=== PATIENT | female | born 1990 | race Caucasian/White ===

== ENCOUNTER → 2018-10-11 | Outpatient (CLI) | payer OTHER ==
[~2018-10-11] MED LIST: Bactrim Ds Tab1 EACH PO; CEPH500 PO; Cleocin HCl300 MG PO; HYDACE5; HYDACE5 PO; IBUP800; NAPR500 PO; Norco 5-325 Ta1 EACH PO; OXYACE5T PO; OXYC5 PO; RXOXYACE PO; Veetids 500500 MG PO
== END ==
LOC: LAB 11:30 → LAB SHORT 11:30
PROVIDERS: Family Medicine
DX: Z09 Encounter for follow-up examination after completed treatment for conditions other than malignant neoplasm (principal); Z87.42 Personal history of other diseases of the female genital tract
CPT/HCPCS: 87624; 87625; 88142

== ENCOUNTER → 2018-11-12 | Outpatient (CLI) | payer OTHER | LOC: PLD 11:59 → LAB SHORT 11:59 | DX: Z12.4 Encounter for screening for malignant neoplasm of cervix (principal); R87.612 Low grade squamous intraepithelial lesion on cytologic smear of cervix (LGSIL) | CPT/HCPCS: 88305 ==

== ENCOUNTER 2018-12-28 13:17 | Day surgery (SDC) | payer OTHER ==
[~2018-12-28] VITALS: Ht 162.6 cm; Wt 90.8 kg
[~2018-12-28 13:17] MED LIST changes: +ALBU90OI INH; +GABA100 PO
[2018-12-28] MEDS ORDERED: ESCI5 PO (14:05)
[2018-12-28] MEDS ORDERED: BUSP5 PO (14:05)
--- NOTE | 2018-12-28 14:17 | NUR ---
12/28/18 1417 Trupti Kim V PT RESTING IN BEDM SIDE RAILS IN PLACE, CALL LIGHT WITHIN REACH, VSS. PT TEACHING COMPLETED. PT DENIES PAIN, DISCOMFORT, AND QUESTIONS AT THIS TIME.
--- NOTE | 2018-12-28 16:11 | NUR ---
12/28/18 1611 Kajal Last PT. DENIES ANY PAIN. PT. DOES C/O SORE THROAT IN WHICH PT. WAS INSTRUCTED ON THIS IN PREOP & IN PACU. PT. DENIES NAUSEA. PT. CAME OUT CRYING & WONDERED WHY. PT. INSTRUCTED IT HAPPENS SOMETIMES WITH THE ANESTHESIA.
--- NOTE | 2018-12-28 16:21 | NUR ---
12/28/18 1621 Kajal Last PT. STATES "MY CROTCH DOES HURT." PT. STATES "DISCOMFORT." & "TOLERABLE." PT. DENIES NEEDING ANYTHING FOR PAIN AT THIS TIME. PT. PERIPAD D&I. PT. DENIES NAUSEA. PT. DRINKING WATER & SNACKS AT SIDE. PT. VERBALIZES WATER MAKES HER THROAT FEEL A LITTLE BETTER. PT. C/O SORE THROAT.
== END 2018-12-28 16:55 | disposition home or self-care (01) ==
LOC: ORSCSDS 13:17
PROVIDERS: Obstetrics & Gynecology
PROC: 0UBC7ZX Excision of Cervix, Via Natural or Artificial Opening, Diagnostic (ICD-10-PCS; principal; 2018-12-28 14:00)
DX: N87.1 Moderate cervical dysplasia (principal); I10 Essential (primary) hypertension; F17.210 Nicotine dependence, cigarettes, uncomplicated; E66.9 Obesity, unspecified; Z68.34 Body mass index [BMI] 34.0-34.9, adult; Z79.899 Other long term (current) drug therapy
CPT/HCPCS: 88307; J0690; J1100; J1885; J2250; J2405; J2704; J3010; J7120

== ENCOUNTER → 2021-02-02 | Outpatient (CLI) | payer OTHER ==
[~2021-02-02] MED LIST changes: +BUSP5 PO; +ESCI5 PO
[2021-02-04 13:12] LABS: HPV 16 Negative (Negative); HPV 18 Negative (Negative); HPV OTHER HR TYPES Negative (Negative)
== END ==
LOC: LAB 16:44 → LAB SHORT 16:44
PROVIDERS: Registered Nurse Community Health
DX: Z12.4 Encounter for screening for malignant neoplasm of cervix (principal); R87.612 Low grade squamous intraepithelial lesion on cytologic smear of cervix (LGSIL)
CPT/HCPCS: 87624; G0123

== ENCOUNTER 2021-04-14 06:22 | Day surgery (SDC) | payer OTHER ==
[~2021-04-14] VITALS: Ht 162.6 cm; Wt 84.0 kg
[~2021-04-14 06:22] MED LIST changes: +MULVITA PO; +Vitamin B Comple1 EA PO; +ZYRTEC10 M2 PO
--- NOTE | 2021-04-14 07:10 | NUR ---
Ambulatory in [facility] warming gown applied. Ethics consult requested and facilitated. Patient states colon prep results clear. History, Chart, Medications and Allergies reviewed before start of procedure.Lungs clear T/O to Auscultation. Patient confirms NPO status and agrees with scheduled surgery. Pre-Op teaching done. Pt verbalizes understanding. Patient States Post-Procedure ride home has been arranged.
--- NOTE | 2021-04-14 07:33 | NUR ---
04/14/21 0733 Shagufta Delgado History, Chart, Medications and Allergies reviewed before start of procedure. Patient confirms NPO status and agrees with scheduled surgery. 3-LEAD EKG REVIEWED WITH PHYSICIAN PRIOR TO START OF PROCEDURE. MONITOR INTACT WITH CONTINUOUS PULSE OXIMETRY AND INTERMITTENT BP. PATIENT DETERMINED TO BE ASA APPROPRIATE FOR PROPOFOL SEDATION PRIOR TO START OF PROCEDURE BY .
--- NOTE | 2021-04-14 08:40 | NUR ---
PATIENT C/O CRAMPING TO LUQ ABDOMEN. ENCOURAGED TO PASS AIR. TOLERATING SIPS OF WATER.
--- NOTE | 2021-04-14 08:55 | NUR ---
Discharge instructions reviewed with patient. Patient verbalizes understanding. Copy given to patient to take home. Gait steady. Up to dress. Patient States Post-Procedure ride home has been arranged with her mom.
--- NOTE | 2021-04-14 09:00 | NUR ---
PATIENT STATES ABDOMINAL CRAMPING IMPROVING AND RATES 5-6/10.
== END 2021-04-14 09:01 | disposition home or self-care (01) ==
LOC: ORSCMMR 06:22 → ORSCSDS 08:00 → ORSCMMR 08:00 → ORD 08:00 → ORSCMMR 09:01
PROVIDERS: Internal Medicine Gastroenterology
PROC: 0DJD8ZZ Inspection of Lower Intestinal Tract, Via Natural or Artificial Opening Endoscopic (ICD-10-PCS; principal; 2021-04-14 08:00)
DX: K62.5 Hemorrhage of anus and rectum (principal); R10.9 Unspecified abdominal pain; K59.00 Constipation, unspecified; E66.9 Obesity, unspecified; Z68.33 Body mass index [BMI] 33.0-33.9, adult; Z87.891 Personal history of nicotine dependence; Z79.899 Other long term (current) drug therapy
CPT/HCPCS: 84703; J2250; J2704; J7120

== ENCOUNTER 2022-01-24 22:04 | Emergency (ER) | payer OTHER ==
[~2022-01-24] VITALS: Ht 165.1 cm; Wt 75.8 kg
[2022-01-24] MEDS ORDERED: AMOCLA875 PO (22:40)
== END 2022-01-24 22:55 | disposition home or self-care (01) ==
LOC: ER 22:04
DX: K04.7 Periapical abscess without sinus (principal); F17.210 Nicotine dependence, cigarettes, uncomplicated; Z79.899 Other long term (current) drug therapy
CPT/HCPCS: A9270

== ENCOUNTER → 2022-09-05 | Outpatient (CLI) | payer OTHER ==
[~2022-09-05] MED LIST changes: +AMOCLA875 PO
[2022-09-07 15:11] LABS: HPV 16 Negative (Negative); HPV 18 Negative (Negative); HPV OTHER HR TYPES Negative (Negative)
== END | disposition home or self-care (01) ==
LOC: LAB SHORT 17:38
PROVIDERS: Registered Nurse Community Health
DX: Z12.4 Encounter for screening for malignant neoplasm of cervix (principal); R87.612 Low grade squamous intraepithelial lesion on cytologic smear of cervix (LGSIL)
CPT/HCPCS: 87624; G0145

== ENCOUNTER 2022-12-23 15:47 | Inpatient (IN) | payer OTHER ==
[2022-12-23] VITALS (8 sets, daily range): BP systolic 105–128; BP diastolic 44–62
[~2022-12-23] VITALS: Ht 167.6 cm; Wt 98.1 kg
[2022-12-23 16:10] LABS: BASOPHILS ABSOLUTE AUTO 0.16 K/mm3 (0.00-0.23); BASOPHILS PERCENT AUTO 1 % (0-2); EOSINOPHILS ABSOLUTE AUTO 0.37 K/mm3 (0.00-0.68); EOSINOPHILS PERCENT AUTO 1 % (0-6); Hematocrit 21.2 % (33.0-51.0); Hemoglobin 7.1 g/dL (11.5-16.0); IMMATURE GRAN ABSOLUTE AUTO 1.59 K/mm3 (0.00-0.10); IMMATURE GRAN PERCENT AUTO 5 % (0-1); LYMPHOCYTES ABSOLUTE AUTO 2.38 K/mm3 (0.84-5.20); LYMPHOCYTES PERCENT AUTO 8 % (21-46); MONOCYTES ABSOLUTE AUTO 2.14 K/mm3 (0.16-1.47); MONOCYTES PERCENT AUTO 7 % (4-13); Mean Corpuscular HGB Conc 33.5 g/dL (31.5-36.5); Mean Corpuscular Volume 108 fL (80-100); Mean Platelet Volume 10.8 fL (9.1-12.4); NEUTROPHILS ABSOLUTE AUTO 24.38 K/mm3 (1.96-9.15); NEUTROPHILS PERCENT AUTO 79 % (41-73); NRBC ABSOLUTE 0.27 K/mm3 (0.00-0.02); NRBC Auto 0.9 /100 WBC (0.0-0.2); Platelet Count 82 K/mm3 (150-400); RDW Coefficient Variation 20.6 % (11.7-14.2); RDW Standard Deviation 70.4 fL (35.1-46.3); Red Blood Cell Count 1.97 M/mm3 (3.80-5.20); White Blood Cell Count 31.02 K/mm3 (4.00-11.30)
[2022-12-23 16:26] LABS: Albumin/Globulin Ratio 0.4 (0.8-1.8); Bilirubin, Total 23.7 mg/dL (0.1-1.0); Bun/Creatinine Ratio 13.1 (12.0-20.0); Calcium, Blood 7.5 mg/dL (8.5-10.1); Creatinine, Blood 3.05 mg/dL (0.40-1.00); Globulin, Blood 3.4 g/dL (2.2-4.0); Potassium, Blood 4.2 mmol/L (3.5-5.5); Total Protein, Blood 4.8 g/dL (6.4-8.2)
[2022-12-23 16:33] LABS: Albumin, Blood 1.4 g/dL (3.4-5.0)
[2022-12-23 16:36] LABS: International Normalized Ratio 2.68; Prothrombin Time Results 26.6 Sec (9.7-11.5)
[2022-12-23 16:43] LABS: Magnesium, Blood 2.2 mg/dL (1.6-2.4)
[2022-12-23 16:47] LABS: Ethanol (Alcohol), Blood, Med <3 mg/dL; Thyroid Stimulating Hormone 0.442 uIU/mL (0.360-4.800)
[2022-12-23 17:24] LABS: U Amphetamine Screen Not Detected; U Barbituate Screen Not Detected; U Benzodiazapine Screen Not Detected; U Buprenorphine Screen Not Detected; U Cannabinoids Screen DETECTED; U Cocaine Screen Not Detected; U Methadone Screen Not Detected; U Methamphetamine Screen Not Detected; U Opiates Screen Not Detected; U Oxycodone Screen Not Detected; U Phencyclidine Screen Not Detected; U Propoxyphene Screen Not Detected
[2022-12-23 19:43] LABS: CPK Creatine Kinase 100 U/L (26-193)
[2022-12-24] VITALS (85 sets, daily range): BP systolic 83–159; BP diastolic 28–80
[2022-12-24 02:59] LABS: Mean Corpuscular HGB 36.2 pg (26.0-34.0); Mean Corpuscular HGB Conc 33.5 g/dL (31.5-36.5); Mean Corpuscular Volume 108 fL (80-100); Mean Platelet Volume 10.8 fL (9.1-12.4); NRBC Auto 0.5 /100 WBC (0.0-0.2); RDW Coefficient Variation 20.9 % (11.7-14.2); Red Blood Cell Count 1.49 M/mm3 (3.80-5.20); White Blood Cell Count 19.46 K/mm3 (4.00-11.30)
[2022-12-24 03:04] LABS: Hematocrit 16.1 % (33.0-51.0); Hemoglobin 5.4 g/dL (11.5-16.0); Platelet Count 39 K/mm3 (150-400)
--- NOTE | 2022-12-24 03:23 | NUR ---
ASSUMED CARE ASSUMED CARE OF PT AT 2114. PT WAS NON VERBAL AND ONLY MOANED TO PAINFUL STIMULUS. PT CORE TEMP WAS 96.1 WITH TEMP VEGA; PT TEMP DROPPED MORE TO 95.7 AND WARMING BLANKET APPLIED. PT RA, HEART SOUNDS TACHY. PT URINE IS DARK AUDI, WITH LITTLE DRAINAGE. RECTAL TUBE PLACED FOR LACTALOSE ENEMA. PT TOLERATED EDEMA WELL. PT STARTED TO WARM UP, PT MENTATION IMPROVED, PT ABLE TO OPEN EYES BUT STILL MOANS WHEN TOUCHED AND NON VERBAL. PT BP STARTED TO DROP ALSO. PT UNABLE TO TAKE ORAL MEDICATIONS, SO WAS SENT TO ICU PER HOSPITALIST FOR GTT. PT STARTED TO BLEED AT IV SITES AND HBG WAS CRITICALLY LOW. UNIT OF BLOOD ORDERED PT WAS TRANSFERED TO ICU. REPORT GIVEN TO ARTEM RIDLEY.
[2022-12-24 03:31] LABS: Magnesium, Blood 2.3 mg/dL (1.6-2.4)
[2022-12-24 03:54] LABS: Albumin, Blood 2.8 g/dL (3.4-5.0); Albumin/Globulin Ratio 1.5 (0.8-1.8); Bilirubin, Total 24.7 mg/dL (0.1-1.0); Bun/Creatinine Ratio 13.4 (12.0-20.0); Calcium, Blood 7.8 mg/dL (8.5-10.1); Creatinine, Blood 3.13 mg/dL (0.40-1.00); Globulin, Blood 1.9 g/dL (2.2-4.0); Potassium, Blood 4.3 mmol/L (3.5-5.5); Total Protein, Blood 4.7 g/dL (6.4-8.2)
[2022-12-24 03:55] LABS: International Normalized Ratio 3.17
[2022-12-24 04:12] LABS: Prothrombin Time Results 31.2 Sec (9.7-11.5)
[2022-12-24 04:17] LABS: BAND PERCENT MAN 7 % (0-8); BASOPHILS ABSOLUTE MAN 0.19 K/mm3 (0.00-0.23); BASOPHILS PERCENT MAN 1 % (0-2); EOSINOPHILS PERCENT MAN 0 % (0-6); LYMPHOCYTES ABSOLUTE MAN 0.77 K/mm3 (0.84-5.20); LYMPHOCYTES PERCENT MAN 4 % (21-46); MONOCYTES ABSOLUTE MAN 0.77 K/mm3 (0.16-1.47); MONOCYTES PERCENT MAN 4 % (4-13); MYELOCYTE ABSOLUTE MAN 0.19 K/mm3 (0.00-0.00); MYELOCYTE PERCENT MAN 1 % (0-0); NEUTROPHILS ABSOLUTE MAN 17.51 K/mm3 (1.96-9.15); SEG NEUTROPHILS PERCENT MAN 83 % (41-73); TOTAL CELLS COUNTED 100
--- NOTE | 2022-12-24 05:48 | NUR ---
SHIFT SUMMARY PATIENT ARRIVED FROM PCU @ 0345. PATIENT WAS LYING IN BED WITH EYES CLOSED, MOANING OCCASSIONALLY. DOES NOT RESPOND TO STAFF, BUT OPENS EYES TO VERBAL STIMULI AND GRIMACES TO PAINFUL STIMULI. BP WAS HYPOTENSIVE WITH MAPS IN THE 40'S. LEVOPHED AND VASOPRESSIN STARTED IN LT FA IV. LEVOPHED NOW AT 12 MCG/MIN. I UNIT OF PRBC INF TO AKSHAT PG FOR HGB 5.4-DROPPED FROM 7.1. OCTREOTIDE INF TO RT ARM. CONSULTED WITH DR. MURILLO FOR CENTRAL LINE PLACEMENT, BUT DUE TO PATIENT LOW PLATELETS AND ELEVATED INR PICC IS PREFERRED. FREQUENTLY ASSESSING PIV FOR BLOOD RETURN. TEMP VEGA PATENT AND DRAINED 150ML TEA COLORED URINE. RECTAL TUBE PATENT AND DRAINED 500ML LIQUID MAROON OUTPUT WITH CLOTS PRIOR TO LACTULOSE ENEMA. CORE TEMP 96.9-WARM BLANKETS APPLIED.
[2022-12-24 08:14] LABS: Hematocrit 20.3 % (33.0-51.0); Hemoglobin 6.9 g/dL (11.5-16.0)
[2022-12-24 13:39] LABS: Hematocrit 20.8 % (33.0-51.0); Hemoglobin 6.9 g/dL (11.5-16.0)
[2022-12-24 14:15] LABS: Influenza A, PCR NEGATIVE (NEGATIVE); Influenza B, PCR NEGATIVE (NEGATIVE); Resp Syncytial Virus, PCR NEGATIVE (NEGATIVE); SARS-Cov-2 (COVID-19) PCR, MMC NEGATIVE (NEGATIVE)
--- NOTE | 2022-12-24 15:34 | NUR ---
PLAN OF CARE UPDATE DR TALAMANTES AND DR MCKINNON AT BEDSIDE DISCUSSING TRANSFERING PT FOR HIGHER LEVEL OF CARE WITH FAMILY. PT MOTHER AND BOYFRIEND AGREE WITH TRANSFER IF POSSIBLE. PT WITH INCREASED OOZING AT IV/PICC SITES AND SMALL AMOUNT OF BRIGHT RED BLOOD WHEN REMOVING RECTAL TUBE AFTER LACTULOSE ENEMA. PLANS TO TRANSFUSE PT WITH BLOOD PRODUCTS AT THIS TIME, AWAITING TRANSFER. VSS. WILL CONTINUE TO MONITOR.
--- NOTE | 2022-12-24 17:07 | NUR ---
INTUBATION IN ANTICIPATION OF PT TRANSPORT TO [facility], IT WAS REQUESTED THAT THE PT BE INTUBATED PRIOR TO TRANSPORT. DR TALAMANTES DISCUSSED WITH DR WEST, WHO DISCUSSED WITH PT AND FAMILY AT BEDSIDE. PT MED WITH 50 MCG FENTANYL, 80 MCG PROPOFOL, AND 50MG GUERRERO PER DR WEST AT 1636. 7.[address] WEST AT 1638. COLOR CHANGE NOTED, BILAT BREATH SOUNDS NOTED. OGT PLACED. CXR DONE. PROPOFOL GTT STARTED AT 25 MCG/KG/MIN. VITAL SIGNS STABLE.
--- NOTE | 2022-12-24 18:20 | NUR ---
SHIFT SUMMARY PT INTUBATED AND SEDATED AT THIS TIME. PT AWAITING TRANSFER TO [facility] IN [place]. PRIOR TO INTUBATED PT UNABLE TO FOLLOW COMMANDS, BUT PT DID TURN HEAD TOWARDS VOICE THIS AFTERNOON. VENT SETTINGS AC 14, TV 420, PEEP 5, FIO2 30%. PT WITH COPIOUS AMOUNT OF ETT AND ORAL SECRETIONS. OGT IN PLACE TO LIS WITH BILE OUTPUT NOTED. PICC TO AKSHAT REMAINS IN PLACE. SITE CONTINUED TO OOZE, NEW DRESSING PLACED WITH GAUZE THIS EVENING. PROPOFOL INFUSING AT 60 MCG/KG/MIN, SANDOSTATIN 50 MCG/HR, LEVOPHED 4 MCG/MIN, AND VASOPRESSIN 0.04 UNITS/HR. 3RD UNIT OF PRBC'S INFUSING AT THIS TIME. VEGA REMAINS IN PLACE WITH MINIMAL AMOUNT OF DARK AUDI OUTPUT NOTED. PT REMAINS JAUNDICED THROUGHOUT AND WITH SEVERE EDEMA TO BLE'S. SBW RESTRAINTS IN PLACE. MULTIPLE PT FAMILY MEMBERS AT BEDSIDE. WILL CONTINUE TO MONITOR AND REPORT OFF TO ONCOMING RN.
--- NOTE | 2022-12-24 19:07 | NUR ---
ASSUMED CARE PATIENT LAYING IN BED WITH EYES CLOSED, SEDATED WITH PROPOFOL @ 80MCG/KG/MIN. COUGHS AROUND ETT. FAMILY AT BEDSIDE. LEVO @ 4 MCG/MIN, VASOPRESSIN @ 0.04 UNTIS/HR, OCTREOTIDE @ 50 ML/HR. VEGA PATENT AND DRAINING TO GRAVITY. BEDSIDE REPORT COMPLETED WITH KEYANA STARKS.
--- NOTE | 2022-12-24 20:19 | NUR ---
REPORT TO JG AT [facility] IN [place]. FAMILY UPDATED.
--- NOTE | 2022-12-24 21:12 | NUR ---
MEDICAL TRANSPORT DEPARTED WITH PATIENT EN ROUTE TO [facility].
[2022-12-27 00:09] LABS: HBSAG SCREEN Negative (Negative); HCV AB Non Reactive (Non Reactive); HEP A AB, IGM Negative (Negative); HEP B CORE AB, IGM Negative (Negative)
== END 2022-12-24 21:12 | disposition short-term general hospital (02) | DRG 441 ==
LOC: ER 15:47 → ICUE 20:07 → PCU 20:07 → ICUE 12-24 03:41
PROVIDERS: Emergency Medicine; Family Medicine; Internal Medicine; ADMIT Student in an Organized Health Care Education/Training Program
PROC: 3E033XZ Introduction of Vasopressor into Peripheral Vein, Percutaneous Approach (ICD-10-PCS; principal; 2022-12-23)
PROC: 30233N1 Transfusion of Nonautologous Red Blood Cells into Peripheral Vein, Percutaneous Approach (ICD-10-PCS; 2022-12-23)
PROC: 30233K1 Transfusion of Nonautologous Frozen Plasma into Peripheral Vein, Percutaneous Approach (ICD-10-PCS; 2022-12-23)
PROC: 30233R1 Transfusion of Nonautologous Platelets into Peripheral Vein, Percutaneous Approach (ICD-10-PCS; 2022-12-23)
PROC: 0BH17EZ Insertion of Endotracheal Airway into Trachea, Via Natural or Artificial Opening (ICD-10-PCS; 2022-12-24)
PROC: 5A1935Z Respiratory Ventilation, Less than 24 Consecutive Hours (ICD-10-PCS; 2022-12-24)
PROC: 02HV33Z Insertion of Infusion Device into Superior Vena Cava, Percutaneous Approach (ICD-10-PCS; 2022-12-24)
DX: K76.7 Hepatorenal syndrome (principal); K72.00 Acute and subacute hepatic failure without coma; K92.2 Gastrointestinal hemorrhage, unspecified; D68.9 Coagulation defect, unspecified; R18.8 Other ascites; K74.60 Unspecified cirrhosis of liver; K76.82 Hepatic encephalopathy; F17.210 Nicotine dependence, cigarettes, uncomplicated; F12.10 Cannabis abuse, uncomplicated; Z20.822 Contact with and (suspected) exposure to COVID-19; Z79.899 Other long term (current) drug therapy; Z79.2 Long term (current) use of antibiotics; Z98.890 Other specified postprocedural states
CPT/HCPCS: 0241U; 31500; 36430; 36569; 51702; 70450; 71045; 74176; 80053; 80074; 82140; 82550; 83690; 83735; 83880; 84443; 84703; 85014; 85018; 85025; 85610; 85730; 86850; 86900; 86901; 86923; 93005; 93010; 93306; 94002; 94760; 99285-25; A9270; C1751; C9113; G0480; J0696; J2354; J2704; J3010; J7050; J7060; P9012; P9016; P9047; P9053; P9059